=== PATIENT | female | born 1970 | race African-American/Black ===

== ENCOUNTER 2016-09-05 02:25 | Inpatient (IN) | payer OTHER ==
--- NOTE | ~2016-09-05 | A ---
[facility] Nutrition Therapy DATE: 09/05/16 Patient: JENIEFR DEGROOT Physician: ALEXANDRA Address: [address] [place] [address] Room/Bed: [address], Zip: [place] [address] Admit Date: 09/05/16 Date of : [birth year] Height: 5 4 Weight: 212 96.5 NUTRITIONAL ASSESSMENT: REASON: NPO in ICU Dx: 46 y/o female admitted for respiratory failure PMH: CHF, non-ischemic cardio myopathy, DJD Anthropometrics: 5'4", 212# (96 kg), BMI 36 Labs: Cl- 112, Glu 256, Creat 1.5, Ca++ 7.8, Alb 2.8, AST 729, ALT 499 Meds: NaCl, furosemide, dex 5%, pepcid, zofran, levaquin (IV), levophed I/O & Bowel function: none noted. Skin Integrity: wnl Estimated Nutrition Needs: 6118-0417 kcal (13-17 kcals/kg ABW) 81-109 g pro (1.5-2.0 grams/kg IBW) Fluids per MD noting CHF Assessment: Chart reviewed, events noted. Pt was admitted to ICU for respiratory failure and continues to be NPO on the vent. Pt has a h/o CHF. Pt is currently on pressor support. MD ordered Jevity 1.2 to start at 20 mL/hr and increase to goal of 50 mL/hr. Please see recommendations for enteral nutrition, as the pt would benefit from a lower volume formula. RD will remain available. Dx: Inadequate oral intake r/t current clinical condition aeb NPO status, pt on vent. Intervention: 1. NPO 2. Enteral nutrition Monitoring, Evaluation and Goals: 1. Enteral nutrition; once enteral nutrition initiated, tolerate >80% goal volume x 24 hrs 2. GI function; promote regular GI function 3. Improve labs; glucose, creat, AST, ALT, GFR 4. Weight; monitor fluid status Recommendations: WHILE THE PT REMAINS ON PRESSOR SUPPORT: 1. If MAP >60 mmHg, use fiber-free formula and monitor for symptoms of intolerance/ gut [facility] Nutrition Therapy DATE: 09/05/16 Patient: JENIFER DEGROOT Physician: ALEXANDRA Address: [address] [place] [address] Room/Bed: [address], Zip: [place] [address] Admit Date: 09/05/16 Date of : [birth year] Height: 5 4 Weight: 212 96.5 ischemia. Recommend Osmolite 1.5 @ 15 ml/hr and advance 10 ml q 8 hours to goal rate of 40 ml/hr x 24 hours + 30 ml Prostat BID. -This will provide 1640 kcals, 90 g pro, 730 ml H20 -Free H20 flushes per MD 2. If MAP <60 mmHg, do not feed the pt. 3. When the pt is hemodynamically stable off pressors, recommend Jevity 1.5 @ 20 ml/hr and advance 10 ml q 6 hours to goal rate of 40 ml/hr x 24 hours + 30 ml Prostat BID -This will provide 1640 kcal, 91 g pro, and 730 ml H20 -Free H20 flushes per MD 3. Please obtain HbA1c and accuchecks to monitor blood glucose. RD will f/u per protocol as pt is at moderate/severe nutritional risk. Respectfully, ERIN DRISCOLL, manager of international [employer], PURNIM[place], LD [employer] [facility] cc: client file
--- NOTE | ~2016-09-05 | CR72 ---
[facility] A Service of [facility] & [facility] RADIOLOGY TEXT RESULTS PATIENT: JENIFER DEGROOT LOCATION: [place] [id number] : [birth year] UNIT #: [id number] AGE: [address]: Prem Barron MD SEX: F ORDER DR: [id number] [facility] [address] [place], [place] [address] [id number] I MR#: [id number] Acc #: [id number] NAME: JENIFER DEGROOT : 1970 SEX: F STUDY DATE/TIME: 09/06/2016 5:21 UNIT: [facility] ROOM: [facility] STUDY DESCRIPTION: CR Chest Single View Portable Attending Physician: Prem Barron M.D. Ordering Physician: Darwin Ledezma M.D. Primary Care Physician: No Primary Care Physician MEDICAL IMAGING REPORT This report is preliminary unless electronic signature is present EXAM Portable chest. INDICATIONS Followup support lines and tubes. COMPARISON Comparison with yesterday. FINDINGS Interval placement of a NG tube. ET tube and right IJ central venous catheter are stable. Patchy infiltrates within the right lung appear to have worsened. Heart size stable. IMPRESSION Interval worsening of patchy infiltrates within the right lung. The ET tube and right IJ central venous catheter are stable. Dictated by... Ruben Prado M.D. THIS IS AN ELECTRONICALLY VERIFIED REPORT Ruben Prado M.D. at 09/06/2016 6:58 AM ARS/izabel TD: 09/06/2016 06:49 JOB #: [id number] MEDICAL IMAGING REPORT Page 1 of 1 COPY
--- NOTE | ~2016-09-05 | CO ---
Unit #: [id number] #: [id number] Patient: JENIFER DEGROOT [id number] [address] [place], [place] [address] [id number] I MR#: [id number] NAME: JENIFER DEGROOT ROOM: [facility] Age: 46 Sex: F Admission Date: 09/05/2016 : 1970 Attending Physician: Prem Barron M.D. Primary Care Physician: No Primary Care Physician Consultation Date: 09/05/2016 CONSULTATION REPORT REASON FOR CONSULTATION Resuscitated arrest. HISTORY OF PRESENT ILLNESS A 46-year-old female with known nonischemic cardiomyopathy, apparently was found down by police. EMS was called. She was resuscitated in the field. She lost her pulse in the ER, was resuscitated, now is on the ventilator in the intensive care unit. She just arrived here in the ICU. She had been on Levophed, now is actually hypertensive and Levophed is being titrated off. CT scan is reported to show changes consistent with anoxic brain injury. She has significant startle myoclonus. She obviously cannot add to the history. CT scan in the ER revealed infiltrates consistent with pneumonia, obviously suspected aspiration. PAST MEDICAL HISTORY 1. Nonischemic cardiomyopathy with an EF of 26%. 2. Arthritis. ALLERGIES Penicillin apparently causing hives. HOME MEDICATIONS 1. Topamax. 2. Coreg. 3. Lisinopril. FAMILY HISTORY Per EHR: Asthma, coronary artery disease, congestive heart failure. REVIEW OF SYSTEMS Unobtainable. SOCIAL HISTORY Apparently a never smoker, rarely drinks. PHYSICAL EXAMINATION GENERAL: Reveals a female who is orally intubated, 7.5 ET tube with startle myoclonus. She is unresponsive. VITAL SIGNS: She is afebrile. Pulse 96, respiratory rate 34, blood pressure 133/95. Height 5 foot 4 inches, weight 212 pounds. BMI is 36. HEENT: Pupils are equal, round, reactive to light. She has mildly dysconjugate gaze, startle myoclonus. No supraclavicular cervical adenopathy appreciated. CHEST: Equal breath sounds. Exam is somewhat limited by her body Unit #: [id number] #: [id number] Patient: JENIFER DEGROOT habitus. No wheeze or stridor. CARDIAC: Reveals tachycardia which is regular. No definite murmur, rub, or gallop. ABDOMEN: Soft, nontender. Decreased bowel sounds. EXTREMITIES: Reveal no clubbing, cyanosis, or significant edema. NEUROLOGIC: She is unresponsive. SKIN: Warm and dry without rash, diaphoresis. DIAGNOSTIC STUDIES LABORATORY: Initial pH 7.05. Currently arterial blood gas: A pH 7.22, pCO2 of 35, pO2 of 74 all on assist control of 18, tidal volume of 550, 50%, and 5 of PEEP. Her BUN is 23, creatinine 1.5. Venous bicarbonate 17 and improving. Liver function tests are elevated. BNP is not performed. Lactic acid was 6.6, now 1.5. INR is 1.1. Initial cardiac enzymes negative. White blood cell count is 17, hemoglobin 11.2, platelet count 232,000. Tox screen negative. Urinalysis: One plus leukocyte esterase, 2+ protein, 3+ blood. Blood cultures performed and are pending. No sputum has been collected. Urine is pending. IMAGING: Chest x-ray: ET tube in adequate position now. CT scan: Bilateral pulmonary infiltrates. No definite PE. ET was in right mainstem but has been removed. CARDIOVASCULAR: EKG: Significant ST-T wave changes laterally. Cardiology seeing. IMPRESSION 1. Resuscitated arrest, likely secondary to cardiac arrhythmia. 2. Anoxic brain injury. 3. Pulmonary edema. 4. Cardiomyopathy. 5. Respiratory failure, currently ventilator dependent. 6. Metabolic acidosis. 7. Shock, improving now with elevated blood pressure. 8. Hematuria. 9. Acute kidney injury. 10. Obesity, consider obstructive sleep apnea. PLAN Mechanical ventilatory support. Will start tube feeds. Antibiotics for now for pneumonia, adjust as cultures return. Diuresis, monitoring kidney function and blood pressure closely. I have discussed with family severity of disease. Overall, prognosis appears poor and I suspect she has very significant anoxic brain injury which she likely will not recover from. Thank you very much for allowing me to participate in the care of Ms. Degroot. Dictated by... Darwin Ledezma M.D. [facility]/ Unit #: [id number] #: [id number] Patient: JENIFER DEGROOT TD: 09/05/2016 11:42 JOB #: [id number] CONSULTATION REPORT Page 1 of 1 X Darwin Ledezma MD CONSULTATION REPORT
--- NOTE | ~2016-09-05 | CO ---
Unit #: [id number] #: [id number] Patient: JENIFER DEGROOT [id number] [address] [place], [place] [address] [id number] I MR#: [id number] NAME: JENIFER DEGROOT ROOM: [facility] Age: 46 Sex: F Admission Date: 09/05/2016 : 1970 Attending Physician: Prem Barron M.D. Consultation Date: 09/05/2016 CONSULTATION REPORT REASON FOR CONSULTATION Non-ischemic cardiomyopathy. HISTORY OF PRESENT ILLNESS This is a 46-year-old female, patient of Dr. Wolf with a prior history of non-ischemic cardiomyopathy with EF 26% per echo on 07/17/2016. She also has a prior history of chronic systolic congestive heart failure, negative Cardiolite exercise stress test in 01/2015, asthma, and rheumatoid arthritis. She is currently intubated and unresponsive on ventilator and unable to answer questions. History was obtained from record review and family at bedside. The patient was found down by police liaison. She was resuscitated per EMS and she did experience retrosternal pulse. In the ER, she had symptomatic severe bradycardia, requiring epinephrine and Levophed. She was stabilized and transferred to the ICU, intubated and unresponsive. She is currently breathing over the vent and has started on myoclonus. CT of the chest showed bilateral infiltrates suspicious for pneumonia. Chest x-ray showed cardiomegaly and sustained atelectasis for edema with possible left pleural effusion. PAST MEDICAL HISTORY 1. Non-ischemic cardiomyopathy with EF 26%. 2. Echo on 07/17/2016 showed EF 26%, mild MR, mild TR, left ventricular hypertrophy. 3. Chronic systolic congestive heart failure. 4. Negative Cardiolite exercise stress test in 01/2015 with EF 31%. 5. Rheumatoid arthritis. 6. Asthma. PAST SURGICAL HISTORY 1. Hysterectomy. 2. . SOCIAL HISTORY The patient lives with her . Denies alcohol use. Life-time non-smoker. Denies illicit drug use. She has been seen a weight loss doctor and taking medication for weight loss according to her family. They are unaware what the medication is, but states she received cardiac clearance for it. FAMILY HISTORY Unit #: [id number] #: [id number] Patient: JENIFER DEGROOT Mother had coronary artery disease and her father had CHF in his 60s. ALLERGIES Penicillin. HOME MEDICATIONS 1. ProAir MDI every 6 hours as needed for shortness of breath and wheezing. 2. Coreg 6.25 twice daily. 3. Lasix 20 mg p.o. daily. 4. Potassium chloride 20 mEq p.o. daily. 5. Aldactone 25 mg p.o. daily. 6. Lisinopril 5 mg p.o. daily. 7. Topamax 25 mg p.o. daily. REVIEW OF SYSTEMS The patient is unresponsive and intubated, unable to obtain. PHYSICAL EXAMINATION VITAL SIGNS: Temperature 98.4, heart rate 96, respirations 27, blood pressure 133/95. Height 64 inches and weight 96.5 kg. GENERAL: This is a 46-year-old female, intubated and unresponsive with start on myoclonus. HEENT: Head is atraumatic and normocephalic. Pupils are equal and round. Mucous membranes are moist. NECK: Supple. Trachea is midline. Negative for JVD. LUNGS: Clear and diminished at bases anteriorly. Rapid respirations. CARDIOVASCULAR: S1 and S2. Regular rate and rhythm. No murmur, rub, or gallop auscultated. ABDOMEN: Soft, nontender, and nondistended. EXTREMITIES: Pulses are palpable. No pedal edema. No cyanosis. NEUROLOGIC: She is unresponsive with started on myoclonus. DIAGNOSTIC STUDIES LABORATORY RESULTS: Sodium 137, potassium 4.4, chloride 112, BUN 23, creatinine 1.5, glucose 356. Hemoglobin 11.2, hematocrit 36.3, platelets 232, and white blood cell count 17. AST 729, ALT 499, and alkaline phos 95. Lipase 31. Lactic acid initially 6.6 now 1.5. Point of care troponin less than 0.05. D-dimer greater than 10,000. PT 11.9, INR 1.1, PTT 28.9. IMAGING STUDIES: CT of the head is concerning for whole brain ischemia with loss of mccoy-white interface, and swelling on the brain and effacement of sulci as well as compression of fourth ventricle and lateral ventricles concerning for anoxic brain injury. CT of the chest was negative for pulmonary embolus showed dense bilateral infiltrates right greater than left. Chest x-ray shows mild cardiomegaly and slightly increased right lung base opacities. Aspiration pneumonia not entirely excluded. Hazy attenuation of her left lower chest however flex either breast, and cardiac status are small left pleural effusion. CARDIOVASCULAR STUDIES: EKG showed sinus tachycardia with a ventricular rate of 110 and nonspecific T-wave abnormalities. ASSESSMENT 1. Resuscitated arrest. 2. Anoxic brain injury. Unit #: [id number] #: [id number] Patient: JENIFER DEGROOT 3. Acute respiratory failure, currently on ventilator. 4. Non-ischemic cardiomyopathy with EF 26%. 5. Sepsis. 6. Hypotension on pressors. 7. Acute kidney injury. PLAN 1. Trend cardiac enzymes. 2. Check BNP. 3. CBC and BMP in a.m. 4. EKG. 5. Echocardiogram. 6. Consider anticoagulation. We will discuss with . Thank you for asking us to see this patient. We appreciate the consult. Dictated by... Judy Vasquez APRN for Codey Ghotra M.D. SUZIE/candelaria TD: 09/06/2016 14:15 JOB #: [id number] CONSULTATION REPORT Page 1 of 1 X X CONSULTATION REPORT
--- NOTE | ~2016-09-05 | CR72 ---
[facility] A Service of [facility] & [facility] RADIOLOGY TEXT RESULTS PATIENT: JENIFER DEGROOT LOCATION: [facility]IC[facility]3-18 : [birth year] UNIT #: [id number] AGE: [address]: Prem Barron MD SEX: F ORDER DR: [id number] [facility] [address] [place], [place] [address] [id number] I MR#: [id number] Acc #: [id number] NAME: JENIFER DEGROOT : 1970 SEX: F STUDY DATE/TIME: 09/05/2016 6:14 UNIT: [facility] ROOM: [id number] STUDY DESCRIPTION: CR Chest Single View Portable Attending Physician: Stephanie Nicole M.D. Ordering Physician: Stephanie Nicole M.D. Primary Care Physician: Primary Care Physician No MEDICAL IMAGING REPORT This report is preliminary unless electronic signature is present EXAM Portable AP view of the chest COMPARISON September 05, 2016 02:49 a.m. and February 15, 2015. INDICATION 46-year-old female found down 1 day ago. Respiratory failure and cardiac arrest. Endotracheal tube placement. Endotracheal tube retraction since comparison exam with placement of a central venous catheter since comparison exam. FINDINGS/IMPRESSION Endotracheal tube has been retracted with the tip now located approximately 4.9 cm above the silverio. There is new right internal jugular catheter with the tip deep in the right atrium, consider retraction by at least approximately 4.5 cm. There appears to be mild cardiomegaly which may be accentuated by apical lordotic positioning, low lung volumes and portable technique. No convincing evidence of pneumothorax. There may be slightly increased opacities in the right lung base with slightly improved left upper lobe opacities perhaps reflecting shifting atelectasis or edema. Pneumonia not entirely excluded. There is hazy attenuation over the left lower chest, grossly stable which may reflect breast and cardiac shadows but a small left pleural effusion cannot be excluded. Dictated by... Maurice Queen M.D. THIS IS AN ELECTRONICALLY VERIFIED REPORT Maurice Queen M.D. at 09/11/2016 7:15 AM [facility] A Service of [facility] & [facility] RADIOLOGY TEXT RESULTS PATIENT: JENIFER DEGROOT LOCATION: [facility] CICCU3-18 : [birth year] UNIT #: [id number] AGE: [address]: Prem Barron MD SEX: F ORDER DR: JOYCE/samuel TD: 09/05/2016 07:08 JOB #: [id number] MEDICAL IMAGING REPORT Page 1 of 1 COPY
--- NOTE | ~2016-09-05 | CO ---
Unit #: [id number] #: [id number] Patient: JENIFER DAVIS [id number] [address] [place], [place] [address] [id number] Connor MR#: [id number] NAME: JENIFER DAVIS ROOM: [facility] Age: 46 Sex: F Admission Date: 09/05/2016 : 1970 Attending Physician: Prem Barron M.D. Consultation Date: 09/05/2016 CONSULTATION REPORT REASON FOR CONSULTATION Renal failure. Thank you very much for asking me to see this patient in consultation. HISTORY OF PRESENT ILLNESS Ms. Jenifer Davis is a 46-year-old female with a history of nonischemic cardiomyopathy with EF around 26%, history of degenerative disk disease, who apparently was found down. Unsure if it was a family member or a police chief deputy, but found down. She lives with her daughter. Pulseless resuscitation, subsequently again in the emergency room had several episodes of pulseless resuscitation again. Subsequently, intubated on the unit. She was initially placed on Levophed and phenylephrine, but now all pressors are off. She is unresponsive on the vent. I was asked to see the patient secondary to decreasing urine output and increased creatinine, upon admission was noted 1.4 and up to 1.5. She has multiple family members around. She has also seen today by Neurology for possible anoxic brain injury. Her family really cannot tell me much history. They do not know if she has ingested anything or not. PAST MEDICAL HISTORY History of nonischemic cardiomyopathy with EF of 26%, history of degenerative disk disease, history of possible obstructive sleep apnea, history of obesity, status post hysterectomy. ALLERGIES Include penicillin. SOCIAL HISTORY She does not smoke. Only occasional alcohol. Again, lives with her daughter. MEDICATIONS At home include Aldactone, lisinopril, Coreg, Topamax, Lasix, and KCl. REVIEW OF SYSTEMS Really unable to obtain at this moment in time. The family could not tell me how she has been feeling prior to this. FAMILY HISTORY Noncontributory. PHYSICAL EXAMINATION GENERAL: Again, unresponsive on the vent. Unit #: [id number] #: [id number] Patient: JENIFER DAVIS VITAL SIGNS: Temperature is 98.4, pulse is 94 to 110, blood pressure is 96 to 185 over 55 to 101. HEENT: Her pupils are very sluggish at best. She is orally intubated. There are no obvious trauma. NECK: Supple. No adenopathy. CARDIAC: She is tachycardic without a rub. No S3 or S4. LUNGS: Have bilateral rhonchi throughout. ABDOMEN: Bowel sounds positive. Decreased nontender. EXTREMITIES: She has cool extremities; however, pulses are intact, but decreased. No skin rashes are noted. : Sosa catheter is in place. DIAGNOSTIC STUDIES IMAGING STUDIES: She had a negative initial chest x-ray. She had a CT of her head that shows consistent with possible diffuse ischemia. She had a CT angiogram with IV contrast, that was negative for PE, but did show bilateral infiltrates right greater than left. LABORATORY RESULTS: Her ABG last checked showed a pH of 7.223, pCO2 of 34, PO2 of 74 on 50%. Sodium is 137, potassium 4.4, chloride is 112, bicarb 17, BUN 23, creatinine 1.5, glucose 256. Her anion gap is 8. On admission, showed a bicarb of 14, and anion gap of 11. Calcium 7.8, albumin is 2.8. Liver function tests are elevated. CPK is 405. Troponin is 2.43. BNP is 160. Lactic acid was 6.6, initially down to 1.5. Her hemoglobin is 11.2, white count 17,000, platelets 232,000 with 21 bands. Her UA shows specific gravity of 1.022, 2+ protein, 25 to 50 rbc's, 2 to 5 wbc's, 1+ bacteria. Blood and urine cultures are pending. ASSESSMENT AND PLAN 1. Acute kidney injury. I assume this lady has acute renal failure. I do not have any previous creatinine prior to this presentation. Certainly, it is combination of acute tubular necrosis from ischemic injury as well as possible noncontrast induced nephropathy from her CT angiogram all contributing to acute renal failure. Certainly at this time, she does not want to be placed on hemodialysis or CRRT that is currently over the next 12 to 48 hours if she may progress this way. I did have a long discussion with the family and let her know about her prognosis. We will continue IV fluids. We will decrease the rate to 75 mL an hour and change to D5W with 3 amps of bicarb. She is on Lasix as well currently. We will keep her going, because I think she is not volume depleted mainly. I think that her renal failure is again related to acute tubular necrosis and contrast. We will check labs in the morning. We will check a renal ultrasound. 2. Acidosis. The patient with metabolic acidosis with a normal anion gap with a fairly well compensation. Again, we will change bicarb drip to 3 amps per L. Again, I doubt if she is with a normal anion gap, we need to proceed other ingestions at this time and again nothing was found, and no history of any ingestions the best family can tell. 3. Possible sepsis from either urinary tract infection, pneumonia, versus other. She has an increased white count and bandemia. She is placed on clindamycin and Levaquin. We will await culture results. 4. History of nonischemic cardiomyopathy. The patient with some increased troponin, but certainly probably related to her code earlier today. We will continue to follow. Dictated by.Trey Ansari M.D. Unit #: [id number] #: [id number] Patient: JENIFER DAVIS WAD/modl TD: 09/06/2016 14:54 JOB #: [id number] CONSULTATION REPORT Page 1 of 1 X Den Ansari MD CONSULTATION REPORT
--- NOTE | ~2016-09-05 | CR72 ---
[facility] A Service of [facility] & [facility] RADIOLOGY TEXT RESULTS PATIENT: JENIFER DEGROOT LOCATION: [facility] : [birth year] UNIT #: [id number] AGE: [address]: Prem Barron MD SEX: F ORDER DR: [id number] [facility] [address] [place], [place] [address] [id number] MR#: [id number] Acc #: [id number] NAME: JENIFER DEGROOT : 1970 SEX: F STUDY DATE/TIME: 09/05/2016 2:49 UNIT: [facility] ROOM: STUDY DESCRIPTION: CR Chest Single View Portable Attending Physician: Cong Vizcaino Ordering Physician: George Vizcaino M.D. Primary Care Physician: Anirudh Ding M.D. MEDICAL IMAGING REPORT This report is preliminary unless electronic signature is present EXAM Portable chest INDICATION Endotracheal tube placement. FINDINGS This portable view of the chest is compared with 02/15/2015. There is an endotracheal tube present with its tip at the silverio. It should be pulled back about 2 to 3 cm. There are low lung volumes and there may be a left upper lobe infiltrate. IMPRESSION 1. Endotracheal tube tip is near the silverio and should be pulled back about 2 to 3 cm. 2. Low lung volumes with possible left upper lobe infiltrate. Dictated by... Gary Rust M.D. THIS IS AN ELECTRONICALLY VERIFIED REPORT Gary Rust M.D. at 09/05/2016 1:39 PM TAISHA/pily TD: 09/05/2016 04:04 JOB #: [id number] MEDICAL IMAGING REPORT Page 1 of 1 COPY
--- NOTE | ~2016-09-05 | CR7 ---
[facility] A Service of [facility] & [facility] RADIOLOGY TEXT RESULTS PATIENT: JENIFER DEGROOT LOCATION: [address] : [birth year] UNIT #: [id number] AGE: [address]: Prem Barron MD SEX: F ORDER DR: [id number] [facility] [address] [facility]. [place], [place] [address] [id number] I MR#: [id number] #: [id number] NAME: JENIFER DEGROOT : 1970 SEX: F STUDY DATE/TIME: 09/05/2016 11:25 UNIT: [facility] ROOM: [facility] STUDY DESCRIPTION: CR Abdomen Single AP View Attending Physician: Prem Barron M.D. Ordering Physician: Darwin Ledezma M.D. Primary Care Physician: No Primary Care Physician MEDICAL IMAGING REPORT This report is preliminary unless electronic signature is present EXAM Abdomen portable 09/05/2016 at 11:25 hours HISTORY A 46-year-old with history of cardiac arrest, Dobbhoff tube placement today. COMPARISON None. FINDINGS Single supine view of the abdomen demonstrates a Dobbhoff tube looped in the proximal stomach with tip directed rightward in the fundus of the stomach. Bowel gas pattern unremarkable. IMPRESSION The Dobbhoff tube tip loops in the fundus of the stomach with tip directed rightward. Dictated by... Chio Bangura M.D. THIS IS AN ELECTRONICALLY VERIFIED REPORT Chio Bangura M.D. at 09/05/2016 12:50 PM Nadine TD: 09/05/2016 12:20 JOB #: [id number] MEDICAL IMAGING REPORT Page 1 of 1 COPY
--- NOTE | ~2016-09-05 | EKG ---
PATIENT: JENIFER DEGROOT UNIT #: [id number] Ventricular Rate: 109 BPM Atrial Rate: 109 BPM P-R Interval: 188 ms QRS Duration: 96 ms Q-T Interval: 352 ms QTC Calculation(Bezet): 474 ms P Winfield: 66 degrees Calculated R Winf[place]: -16 degrees Calculated T Winf[place]: 56 degrees Diagnosis Line: Sinus tachycardia Diagnosis Line: Possible Left atrial enlargement Diagnosis Line: Nonspecific ST abnormality Diagnosis Line: Abnormal ECG Diagnosis Line: When compared with ECG of 05-SEP-2016 02:41, Diagnosis Line: Incomplete right bundle branch block is no longer Diagnosis Line: Present Diagnosis Line: Confirmed by NELY RALPH MD ([id number]) on Diagnosis Line: 09/07/2016 3:40:35 PM INTERPRETING MD: MECHE
--- NOTE | ~2016-09-05 | CO ---
Unit #: [id number] #: [id number] Patient: JENIFER DEGROOT [id number] [facility] [address] [facility]. [place], [place] [address] [id number] I MR#: [id number] NAME: JENIFER DEGROOT ROOM: [facility] Age: 46 Sex: F Admission Date: 09/05/2016 : 1970 Attending Physician: Prem Barron M.D. Primary Care Physician: No Primary Care Physician Consultation Date: 09/05/2016 CONSULTATION REPORT REFERRING PHYSICIAN Stephanie Nicole M.D. 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 PATIENT IDENTIFICATION This is a 46-year-old -Citizen Of [place] female, who was evaluated in room ICU, bed 18 at [facility]. SOURCE OF INFORMATION The medical record and my discussion with the patient's daughter. PROBLEM LIST 1. The patient was a resuscitated arrest. 2. Nonischemic cardiomyopathy with low ejection fraction. 3. Degenerative disk disease. 4. Hysterectomy. 5. . HISTORY OF PRESENT ILLNESS This is a 46-year-old female who was actually brought in via EMS and it looks like she went outside to walk or something and apparently there was a police patrol type situation and they were rounding and they saw her. When they came back, she was on the ground and she was shaking. EMS was called then and the patient had apparently lost her pulse. She was resuscitated in the field and intubated and brought in the emergency room where she transiently became pulseless again. She had extreme bradycardia. She had to be treated several times with different medication. Her blood pressure was low. She was treated per ACLS protocol. She was intubated, and she has not really woken up and what we are seeing right now is significant jerking type activity which is the classic hypoxic and anoxic myoclonus. The patient has a known history of ischemic cardiomyopathy and concern was raised with the family that she may have a cardiac event. Her ABGs were abnormal when she came in. Her pH was 7.05. Her creatinine has gone up to 1.5. Her AST is 729, ALT 499, alkaline phosphatase is up to 95. Troponin was 1.42. Her white count was 17, H and H was 11.2 and 36.3, platelet count 232,000. Urine drug screen was negative. Urinalysis showed some protein and blood, 2-5 WBCs and bacteria positive. I do not have imaging study results of the head. She is otherwise nonresponsive but it does look like she has a gag and she is overbreathing the vent. Unit #: [id number] #: [id number] Patient: JENIFER DEGROOT She is having what clinically looks like anoxic myoclonus. No history of seizures. Nothing suggesting seizure right now. I did get the CT report and I looked at it and it shows loss of mccoy-white and effacement of the sulci with significant brain edema which is typically seen with hypoxic and anoxic events. PAST MEDICAL HISTORY As discussed above. PAST SURGICAL HISTORY Nothing major. ALLERGIES Penicillin causing hives. HOME MEDICATIONS 1. Topamax. 2. Coreg. 3. Lisinopril. FAMILY HISTORY As per records: Asthma, coronary artery disease, congestive heart failure. SOCIAL HISTORY The patient lives at home. Apparently never smoked, rarely drinks. No drug use known to us. REVIEW OF SYSTEMS Could not be obtained because of her present anoxic state. PHYSICAL EXAMINATION VITAL SIGNS: Temperature 98.4, pulse 96, respirations 34, blood pressure 133/95, O2 saturations were up to 100%. Weight 212 pounds. BMI was 36. NEUROLOGIC: The patient essentially is in a coma. I really did not see any posturing or any other activities. She had spontaneous movements, so I will have to give her a [place] Coma Scale of probably 3T. She is obviously not following commands. She does have what looks like cough and she is overbreathing the vent. CRANIAL NERVES: Pupils: I really did not see any reactivity, almost pinpoint. No corneals. No doll's eyes. No disconjugate eye movements. No ptosis. No nystagmus but she has this myoclonus activity and the eyes keep on opening and closing. I did not see any facial asymmetry. Hearing was questionable. Tongue was midline. I could not visualize the oropharynx or uvula. Head turning was otherwise not seen. MOTOR: Except for the myoclonus, I did not seen any activity. SENSORY: Except for the myoclonus, I did not see any reactivity. REFLEXES: I could not get any reflexes. Toes are moot. GAIT/COORDINATION: Could not be evaluated. DIAGNOSTIC STUDIES Labs and imaging studies reviewed personally. 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 By the way, I am seeing and today is the first day. I talked to the family. So far, there is nothing primary neurologic that is known to us. There is nothing suggesting seizure or central nervous system Unit #: [id number] #: [id number] Patient: JENIFER DEGROOT infection or major infarct. This is probably global hypoxia. I will try some Ativan to calm the myoclonic type activity as other medications really do not do anything for her prognosis. I am looking at the brain and the swelling and the myoclonic activity and within a few hours, she is nonreactive so she may progress to brain . Another option is that she wakes up without any deficits which I really, really doubt and many people if they make it, they have significant brain damage and cognitive changes but I am concerned because of her age and the cardiac issues and the edema that this will be a poor prognostic picture but we will do whatever needs to be done and could be done. I explained that to the family. I will follow her. Call me for any other questions, issues, or concerns. I will follow her along with you. If there are any other issues, call me any time. Dictated by... Blanca Blanchard TD: 09/05/2016 16:31 JOB #: [id number] CONSULTATION REPORT Page 1 of 1 X Eva Palmer MD X CONSULTATION REPORT
--- NOTE | ~2016-09-05 | US77 ---
[facility] A Service of [facility] RADIOLOGY TEXT RESULTS PATIENT: JENIFER DEGROOT [facility] [birth year] UNIT #: [id number] AGE: [address]: Prem Barron MD SEX: F ORDER DR: [id number] [facility] [address] [facility] [place] [facility]. [place], [place] [address] [id number] I MR#: [id number] Acc #: [id number] NAME: JENIFER DEGROOT : 1970 SEX: F STUDY DATE/TIME: 09/05/2016 20:43 UNIT: [facility] ROOM: [facility] STUDY DESCRIPTION: US Kidney Bilateral Complete Attending Physician: Prem Barron M.D. Ordering Physician: Azeem Ansari M.D. Primary Care Physician: No Primary Care Physician MEDICAL IMAGING REPORT This report is preliminary unless electronic signature is present EXAM Renal ultrasound. INDICATION Acute renal failure. Difficulty urinating. COMPARISON None available. FINDINGS The right kidney measures 12.3 cm. The left kidney measures 11.5 cm. There is increased echogenicity of the renal cortex suggesting chronic medical renal disease. This is not definitive. Renal cortical thickness is normal. No hydronephrosis. The bladder is decompressed due to a Sosa catheter. IMPRESSION Slightly increased echogenicity of renal cortex suggests a component of chronic medical renal disease. No hydronephrosis. Dictated by... Darryl Shepherd M.D. THIS IS AN ELECTRONICALLY VERIFIED REPORT Darryl Shepherd M.D. at 09/06/2016 1:20 PM CATHERINE/lucila TD: 09/05/2016 22:12 JOB #: [id number] MEDICAL IMAGING REPORT [facility] A Service [facility] RADIOLOGY TEXT RESULTS PATIENT: JENIFER DEGROOT LOCATION: [facility] : [birth year] UNIT #: [id number] AGE: [address]: Prem Barron MD SEX: F ORDER DR: Page 1 of 1 COPY
--- NOTE | ~2016-09-05 | CT16 ---
[facility] A Service of [facility] & [facility] RADIOLOGY TEXT RESULTS PATIENT: JENIFER DEGROOT [facility] [birth year] UNIT #: [id number] AGE: [address]: Prem Barron MD SEX: F ORDER DR: [id number] [facility] [address] [facility]. [place], [place] [address] [id number] E MR#: [id number] Acc #: [id number] NAME: JENIFER DEGROOT : 1970 SEX: F STUDY DATE/TIME: 09/05/2016 4:08 UNIT: [facility] ROOM: STUDY DESCRIPTION: CT Angio Chest for PE Attending Physician: George Vizcaino M.D. Ordering Physician: George Vizcaino M.D. Primary Care Physician: Primary Care Physician No MEDICAL IMAGING REPORT This report is preliminary unless electronic signature is present EXAM CT scan of the chest with pulmonary embolus protocol INDICATION Patient found unresponsive at home and was resuscitated. Evaluate for pulmonary embolus. TECHNIQUE The patient was given 80 mL of Isovue 370 and spiral imaging was performed through the chest. 3-D reconstructions of the pulmonary arteries were generated. This CT examination was performed with one or more of the following radiation dose reduction techniques: automatic exposure control, adjustment of mA and/or kV according to patient size, and iterative reconstruction. FINDINGS The study is slightly degraded by motion. There is no pulmonary embolus visible. The patient has an endotracheal tube present which is just below the silverio with its tip in the right mainstem bronchus. There are dense bilateral upper lobe infiltrates, right side greater than left, and there are lower lobe superior segment infiltrates, right side greater than left. The visualized portions of the upper abdomen are normal. IMPRESSION 1. The endotracheal tube is just down the right mainstem bronchus and it should be pulled back about 3 cm. 2. There are dense bilateral infiltrates, right side greater than left. These infiltrates are located in the right upper lobes posteriorly and also in the right lower lobe superior segments. 3. There is no pulmonary embolus visible. [facility] A Service of [facility] & [facility] RADIOLOGY TEXT RESULTS PATIENT: JENIFER DEGROOT [facility] : [birth year] UNIT #: [id number] AGE: [address]: Prem Barron MD SEX: F ORDER DR: Dictated by... Gary Rust M.D. THIS IS AN ELECTRONICALLY VERIFIED REPORT Gary Rust M.D. at 09/05/2016 1:39 PM TAISHA/samuel TD: 09/05/2016 06:00 JOB #: [id number] MEDICAL IMAGING REPORT Page 1 of 1 COPY
--- NOTE | ~2016-09-05 | DS ---
Unit #: [id number] #: [id number] Patient: JENIFER DEGROOT [id number] [address] [address] [id number] I MR#: [id number] NAME: JENIFER DEGROOT ROOM: [facility] Age: 46 Sex: F Admission Date: 09/05/2016 : 1970 Discharge Date: 09/07/2016 Attending Physician: Prem Barron M.D. Primary Care Physician: No Primary Care Physician DISCHARGE SUMMARY DISCHARGE/ SUMMARY REASON FOR ADMISSION Resuscitated arrest. HISTORY OF PRESENT ILLNESS/HOSPITAL COURSE The patient is a 46-year-old female with a prior history of nonischemic cardiomyopathy, decreased ejection fraction I believe close to 15% to 20%, who was admitted following resuscitating arrest. Please see H and P for complete details of initial part of hospital course. Initial head CT performed was suspicious for anoxic encephalopathy and patient had no neurological response, no reflexes when she presented to the ER for initial evaluation. She was subsequently placed on ventilator and consultation was placed to Dr. Ledezma and associates as the clinical nurse reviewer. We also placed consultation to cardiology secondary to a prior history of systolic heart failure. Through this hospital course, the patient did have elevated troponins and did undergo a 2D echocardiogram showing ejection fraction of 15% to 20%. We also placed consultation after patient's creatinine slowly started to increase. Indication of renal failure and, therefore, Dr. Ansari saw and evaluated the patient. Routine medications were initiated. Through the patient's time and while being admitted here in the ICU, she had no neurological function. She was no sedation. Plans were reviewed with patient and family in detail. Neurology services were also asked to see the patient as well, per family request, to ascertain brain status and/or brain function. The patient underwent brain perfusion scan on 09/06/2016 at 2 p.m. in the afternoon which did not show any intracerebral blood flow indicative of brain /anoxic brain injury. These results were subsequently communicated with patient's family and, ultimately, patient underwent terminal extubation and on 09/06/2016 at 2002 hours. FINAL DISCHARGE DIAGNOSES/REASON FOR Unit #: [id number] #: [id number] Patient: JENIFER DEGROOT 1. Anoxic encephalopathy. 2. Acute respiratory failure. 3. Resuscitated arrest. 4. Ischemic cardiomyopathy with ejection fraction of 15% to 20%. 5. Elevated troponins. 6. Acute renal failure. Dictated by... Blanca Short/curt TD: 09/10/2016 08:46 JOB #: [id number] DISCHARGE SUMMARY Page 1 of 1 X Prem Barron MD X DISCHARGE SUMMARY
--- NOTE | ~2016-09-05 | NM10 ---
[facility] A Service of [facility] RADIOLOGY TEXT RESULTS PATIENT: JENIFER DEGROOT LOCATION: [place] [address]-18 : [birth year] UNIT #: [id number] AGE: [address]: Prem Barron MD SEX: F ORDER DR: [id number] [place] [id number] [facility]. [place], [place] [address] [id number] I MR#: [id number] Acc #: [id number] NAME: JENIFER DEGROOT : 1970 SEX: F STUDY DATE/TIME: 09/06/2016 14:01 UNIT: [facility] ROOM: [facility] STUDY DESCRIPTION: NM Brain Image W Vasc Flow Attending Physician: Prem Barron M.D. Ordering Physician: Eva Palmer M.D. Primary Care Physician: No Primary Care Physician MEDICAL IMAGING REPORT This report is preliminary unless electronic signature is present EXAM Brain study on patient. INDICATIONS Patient collapsed on the morning of September 05, 2016. She had a resuscitated arrest and subsequently had a CT of the head that showed loss of mccoy-white matter differentiation, characteristic of anoxic brain injury. Patient was administered 27.4 mCi of technetium-99m DTPA and multiple sequential images were obtained over the head. FINDINGS Patient does have radiotracer uptake seen within the right internal jugular vein central venous line, which was the site of injection; however, no uptake within the patient's brain is seen. IMPRESSION No intracerebral blood flow identified. Findings discussed with Dr. Palmer at the time of this dictation. Dictated by... Rosaura Ellis M.D. THIS IS AN ELECTRONICALLY VERIFIED REPORT Rosauar Ellis M.D. at 09/06/2016 4:42 PM AFF/js TD: 09/06/2016 16:30 JOB #: [id number] MEDICAL IMAGING REPORT [facility] A Service [facility] RADIOLOGY TEXT RESULTS PATIENT: JENIFER DEGROOT LOCATION: [address] : [birth year] UNIT #: [id number] AGE: [address]: Prem Barron MD SEX: F ORDER DR: Page 1 of 1 COPY
--- NOTE | ~2016-09-05 | HP ---
Unit #: [id number] #: [id number] Patient: JENIFER DEGROOT [id number] [address] [place], [place] [address] [id number] I MR#: [id number] NAME: JENIFER DEGROOT ROOM: 265[address] Age: 46 Sex: F Admission Date: 09/05/2016 : 1970 Attending Physician: Stephanie Nicole M.D. Primary Care Physician: No Primary Care Physician HISTORY AND PHYSICAL CHIEF COMPLAINT Resuscitated arrest. HISTORY This 46-year-old female with nonischemic cardiomyopathy, DJD, is admitted followed a resuscitated arrest. Complete details are somewhat unknown. Apparently the patient was witnessed to have some shaking episodes and distress in front of possibly her home by bystanders who could have been police. EMS was called, and patient lost her pulse. She was resuscitated in the field, and brought into this emergency department initially with a pulse. However, she transiently lost her pulse in the ER or became extremely bradycardic three times requiring multiple doses of epinephrine. Also received 3 amps of bicarb. Was started on Levophed with improvement of her blood pressure and stabilization of her heart rate. Currently on examination she has startle myoclonus. Head CT is suspicious for anoxic encephalopathy. Labs are notable for metabolic acidosis. EKG shows ST wave abnormalities laterally. CTA of the chest was performed, which was negative for PE, but does show bilateral infiltrates consistent with pneumonia. In the ER the patient was also bolused with IV fluids, given Levaquin as she is penicillin allergic. Apparently before this episode she was in her usual status of health according to a family member who now was in the emergency department. PAST MEDICAL HISTORY 1. Nonischemic cardiomyopathy with echo revealing an ejection fraction of about 26% but without significant valvular heart disease. Echo 06/2016 at [facility] ejection fraction 26%. Left ventricle chamber is moderately enlarged, mild LVH. Previous exercise treadmill at this facility 2014 was negative for ischemia. 2. DJD. 3. Hysterectomy. 4. . ALLERGIES Penicillin resulting in hives. HOME MEDICATIONS Topamax 200 mg b.i.d.; Coreg 6.25 mg b.i.d.; lisinopril 10 mg daily. FAMILY HISTORY Asthma, CAD, congestive heart failure. Unit #: [id number] #: [id number] Patient: JENIFER DEGROOT SOCIAL HISTORY The patient according to old records is a lifelong nonsmoker and seldom drinks alcohol. REVIEW OF SYSTEMS Impossible to obtain as patient is unresponsive on a ventilator. PHYSICAL EXAMINATION GENERAL: 46-year-old female who currently is unresponsive on a ventilator, she does have startle myoclonus. VITAL SIGNS: Temperature uncertain, pulse 99, respirations 25. Current blood pressure 111/91, O2 saturation 97%. FIO2 of 50%. HEENT: Pupils are about 5 mm and do not really react. Negative corneals. Negative doll's. Pharynx - patient is orally intubated. NECK: Supple without adenopathy or thyromegaly. CHEST: Rhonchi noted bilaterally. CARDIAC: Normal S1 and S2 without definite murmur. ABDOMEN: Bowel sounds are hypoactive, nontender. No hepatosplenomegaly or masses. EXTREMITIES: Without clubbing, cyanosis or edema. Pedal pulses are diminished. NEUROLOGIC: Patient has startle myoclonus on exam, is breathing above the ventilator. Pupils are about 5 mm but negative. Corneal reflexes at this time are doll's. DIAGNOSTIC STUDIES ADMISSION LABS: Hematocrit is 36.3, white blood count is 17, normal platelet count, 21 bands. SMA 12 - glucose 288, chloride 114, CO2 14, calcium 8.2, lipase normal, lactic acid 6.6. D-dimer greater than 10,000. Cardiac markers are negative. ABG - pH 7.06, pCO2 44.8, pO2 355, O2 saturation 99.6% on AC 18, FIO2 100%, tidal volume 550, PEEP of 5. Urinalysis - positive leukocyte esterase, protein, blood with 25-50 red cells, 2-5 white cells, 1+ bacteria. IMAGING STUDIES: Head CT worrisome for global anoxic ischemia. Chest x-ray - low lung volumes. CT of the chest is negative for PE. Does show dense bilateral infiltrates with ET tube in the right main stem bronchus. ET tube has since been pulled back. CARDIOLOGY STUDIES: EKG shows sinus tachycardiac, rate 110 with T wave inversions noted 1, AVL, and V5 through V6. ASSESSMENT 1. Resuscitated arrest. Possibly this was a primary cardiac event, as patient does have a nonischemic cardiomyopathy. She does have infiltrates bilaterally on chest x-ray, which was suspicious for pneumonia. 2. Anoxic encephalopathy. 3. Pneumonia which could be community acquired versus aspiration. 4. Nonischemic cardiomyopathy, ejection fraction 26%. 5. DJD. PLANS 1. IV fluids with bicarb. 2. Serial cardiac enzymes. Unit #: [id number] #: [id number] Patient: JENIFER DEGROOT 3. Repeat labs. 4. Now will check LFTs as well and repeat ABG along with lactic acid level. 5. Levaquin and clindamycin. 6. Check urine tox screen. 7. Gastritis prophylaxis. 8. SCDs pending obtaining PT and PTT. 9. Aspirin. 10. Continue Levophed. 11. Pulmonary, cardiology, neurology consultation. 12. Prognosis at this time is very guarded. Critical care time spent evaluating this patient was 40 minutes. Dictated by Blanca Mishra/ts TD: 09/05/2016 06:34 JOB #: [id number] CC: Anirudh Ding M.D. HISTORY AND PHYSICAL Page 1 of 1 X Stephanie Nicole MD HISTORY AND PHYSICAL
--- NOTE | ~2016-09-05 | CT71 ---
[facility] A Service of [facility] RADIOLOGY TEXT RESULTS PATIENT: JENIFER DEGROOT LOCATION: [facility] : [birth year] UNIT #: [id number] AGE: [address]: Prem Barron MD SEX: F ORDER DR: [id number] [facility] [address] [place], [place] [address] [id number] MR#: [id number] #: [id number] NAME: JENIFER DEGROOT : 1970 SEX: F STUDY DATE/TIME: 09/05/2016 3:55 UNIT: CIC3 ROOM: [facility] STUDY DESCRIPTION: CT Head Wo Contrast Attending Physician: Prem Barron M.D. Ordering Physician: [place], [id number] Primary Care Physician: Primary Care Physician No MEDICAL IMAGING REPORT This report is preliminary unless electronic signature is present EXAM CT scan of the head without contrast, 09/05/2016 INDICATION Patient found unresponsive at home today and was resuscitated. Decreased level of consciousness. COMPARISON 07/15/2012 TECHNIQUE Unenhanced images were obtained through the brain. There is diffuse brain swelling with loss of the mccoy-white interface. There are still some sulci visible but they are clearly decreased in conspicuity as compared with the old study. The lateral ventricles are small. This CT exam was performed with one or more of the following radiation dose reduction techniques: automatic exposure control, adjustment of mA and/or kV according to patient size, and iterative reconstruction. IMPRESSION Findings are concerning for whole brain ischemia with loss of mccoy-white interface and swelling of the brain and effacement of sulci as well as compression of the fourth ventricle and lateral ventricles. Dictated by... Gary Rust M.D. THIS IS AN ELECTRONICALLY VERIFIED REPORT Gary Rust M.D. at 09/05/2016 1:39 PM TAISHA/pily [facility] A Service of [facility] RADIOLOGY TEXT RESULTS PATIENT: JENIFER DEGROOT LOCATION: [facility]3-18 : [birth year] UNIT #: [id number] AGE: [address]: Prem Barron MD SEX: F ORDER DR: TD: 09/05/2016 04:30 JOB #: [id number] MEDICAL IMAGING REPORT Page 1 of 1 COPY
--- NOTE | ~2016-09-05 | EKG ---
PATIENT: JENIFER DEGROOT UNIT #: [id number] Ventricular Rate: 109 BPM Atrial Rate: 109 BPM P-R Interval: 170 ms QRS Duration: 104 ms Q-T Interval: 370 ms QTC Calculation(Bezet): 498 ms P [place]: 79 degrees Calculated R [place]: -45 degrees Calculated T [place]: 128 degrees Diagnosis Line: Sinus tachycardia Diagnosis Line: Left axis deviation Diagnosis Line: Incomplete right bundle branch block Diagnosis Line: ST and T wave abnormality, consider lateral ischemia Diagnosis Line: Abnormal ECG Diagnosis Line: When compared with ECG of 15-FEB-2015 02:38, Diagnosis Line: Incomplete right bundle branch block is now Diagnosis Line: Present Diagnosis Line: ST depression, consider subendocardial injury or Diagnosis Line: digitalis effect now present in inferolateral Diagnosis Line: leads Diagnosis Line: Confirmed by WATSON FERRERA MD ([id number]) on 09/05/2016 Diagnosis Line: 7:43:37 AM INTERPRETING MD: IBAN BARROS
[~2016-09-05 02:25] MED LIST: ALDACTONE25 MG PO; COREG3.125 MG PO; ENTRESTO 24 MG1 EACH PO; LASIX20 MG PO; LORTAB 5/500 TA1 TA1 PO; MOBIC PO; NAPROXEN PO; PREDNISONE PO; ROBAXIN 750750 M1 PO; VITAMIN D 22000 UNIT PO; ZITHROMAX PO
[2016-09-05] MEDS ORDERED: LISINOPRIL10 MG PO (02:41)
[2016-09-05] MEDS ORDERED: TOPIRAMATE200 M1 PO (02:41)
[2016-09-05] MEDS ORDERED: COREG6.25 M1 PO ×2 (02:41→07:09)
[2016-09-05 03:16] LABS: ARTERIAL BLD GAS O2 SATURATION 99.6 % (90.0-100.0); ARTERIAL BLOOD GAS HCO3 12.6 mmol/L; ARTERIAL BLOOD GAS PCO2 44.8 mmHg (35.0-45.0); ARTERIAL BLOOD GAS pH 7.059 (7.350-7.450)
[2016-09-05 03:17] LABS: ARTERIAL BLOOD GAS ALLEN TEST NORMAL; ARTERIAL BLOOD GAS ART SITE LEFT RADIAL; ARTERIAL BLOOD GAS CARBOXY HB 0.1 %sat (0.0-9.0); ARTERIAL BLOOD GAS DELIVERY VENT; ARTERIAL BLOOD GAS MET HB 0.9 %sat (0.0-2.0); ARTERIAL BLOOD GAS VENT MODE A/C; ARTERIAL DRAW? YES
[2016-09-05 04:01] LABS: POC - CKMB 7.6 ng/mL (0.0-7.9); POC - TROPONIN <0.05 ng/mL (<=0.05)
[2016-09-05 04:01] LABS: URINE SOURCE CATH
[2016-09-05 04:25] LABS: POC - CREATININE 1.36 mg/dL (0.44-1.03)
[2016-09-05 04:29] LABS: BUN/CREATININE RATIO 13.57; CALCIUM SERUM 8.2 mg/dL (8.4-10.2); CREATININE SERUM 1.4 mg/dL (0.6-1.4); GLOM FILT RATE Estimated 51.7 mL/min (>60); POTASSIUM 3.9 mmol/L (3.5-5.1)
[2016-09-05 04:33] LABS: BASOPHIL# 0.1 X10e3 (0-0.3); BASOPHIL% 0.4 % (0-2.5); EOSINOPHIL# 0.1 X10e3 (0-0.7); EOSINOPHIL% 0.6 % (0.0-7.0); HEMATOCRIT 36.3 % (35.0-45.0); HEMOGLOBIN 11.2 gm/dL (12.0-16.0); LYMPHOCYTE# 3.9 X10e3 (1.0-3.5); LYMPHOCYTE% 22.8 % (17.0-45.0); MEAN CELL VOLUME 91.7 FL (83-96); MEAN CORPUSCULAR HEMOGLOBIN 28.2 PG (28-34); MEAN CORPUSCULAR HGB CONC 30.8 g/dL (30-36); MEAN PLATELET VOLUME 9.4 FL (6.5-11.5); MONOCYTE# 0.3 X10e3 (0-1.0); MONOCYTE% 1.5 % (3.0-12.0); NEUTROPHIL# 12.7 X10e3 (1.5-7.1); NEUTROPHIL% 74.7 % (40-75); PLATELET COUNT 232 X10e3 (140-420); RED BLOOD COUNT 3.96 X10e (3.90-5.30); RED CELL DISTRIBUTION WIDTH 13.6 % (11.0-15.5)
[2016-09-05 04:34] LABS: DIFF IND YES
[2016-09-05 04:43] LABS: URINE APPEARANCE CLOUDY; URINE BILIRUBIN NEG (NEG); URINE BLOOD 3+ (NEG); URINE COLOR YELLOW; URINE GLUCOSE NEG (NEG); URINE KETONE NEG (NEG); URINE LEUKOCYTE ESTERASE 1+ (NEG); URINE NITRATE NEG (NEG); URINE PH 6.5 (5-8); URINE PROTEIN 2+ (NEG); URINE SPECIFIC GRAVITY 1.022 (1.003-1.035)
[2016-09-05 04:46] LABS: CULTURE INDICATED? YES; URBCS1 AUWI 25-50 /[HPF] (0-2); URINE BACTERIA AUWI 1+ (NEGATIVE); URINE SQUAMOUS EPITHELIAL CELL MOD /[HPF]
[2016-09-05 05:05] LABS: URINE MUCUS PRESENT
[2016-09-05 05:29] LABS: ANISOCYTOSIS SL; OVALOCYTES PRESENT; PLATELET ESTIMATE NORMAL (NORMAL)
[2016-09-05 05:55] LABS: AMPHETAMINE NEG (NEG); BARBITURATES NEG (NEG); BENZODIAZEPINES NEG (NEG); COCAINE NEG (NEG); MARIJUANA NEG (NEG); OPIATES NEG (NEG); TRICYCLIC ANTIDEPRESSANTS NEG (NEG); U METHADONE NEG (NEG)
[2016-09-05 06:21] LABS: ARTERIAL BLOOD GAS PCO2 34.6 mmHg (35.0-45.0); ARTERIAL BLOOD GAS pH 7.223 (7.350-7.450)
[2016-09-05 06:22] LABS: ARTERIAL BLD GAS O2 SATURATION 93.6 % (90.0-100.0); ARTERIAL BLOOD GAS ALLEN TEST N; ARTERIAL BLOOD GAS ART SITE RIGHT RADIAL; ARTERIAL BLOOD GAS CARBOXY HB 0.5 %sat (0.0-9.0); ARTERIAL BLOOD GAS DELIVERY VENT; ARTERIAL BLOOD GAS HCO3 14.3 mmol/L; ARTERIAL BLOOD GAS VENT MODE AC; ARTERIAL DRAW? YES
[2016-09-05] MEDS ORDERED: LASIX20 MG PO (07:09)
[2016-09-05] MEDS ORDERED: PROAIR HFA8.5 GM INH (07:09)
[2016-09-05] MEDS ORDERED: K-DUR20 ME2 PO (07:10)
[2016-09-05] MEDS ORDERED: ALDACTONE25 MG PO (07:11)
[2016-09-05] MEDS ORDERED: ZESTRIL10 MG PO (07:12)
[2016-09-05] MEDS ORDERED: TOPAMAX25 MG PO (07:13)
[2016-09-05 07:22] LABS: ALBUMIN SERUM 2.8 g/dL (3.5-5.0); BILIRUBIN,TOTAL 0.1 mg/dL (0.2-2.0); BUN/CREATININE RATIO 15.33; CALCIUM SERUM 7.8 mg/dL (8.4-10.2); CREATININE SERUM 1.5 mg/dL (0.6-1.4); GLOM FILT RATE Estimated 47.6 mL/min (>60); POTASSIUM 4.4 mmol/L (3.5-5.1); PROTEIN TOTAL SERUM 5.9 g/dL (6.0-8.3)
[2016-09-05 07:29] LABS: INR 1.1; PROTHROMBIN TIME (PATIENT) 11.9 SECONDS (9.6-11.5)
[2016-09-05 13:49] LABS: MB 25.4 ng/ml
[2016-09-05 16:24] LABS: %MB 5.2 % (0.0-4.0); MB 21.1 ng/ml
[2016-09-05 18:13] LABS: CREATININE,RANDOM URINE 11 mg/dL; SODIUM URINE RANDOM 125 mmol/L; TOTAL PROTEIN,RANDOM URINE 53 mg/dl (<10)
[2016-09-06 04:15] LABS: ARTERIAL BLOOD GAS PCO2 24.9 mmHg (35.0-45.0); ARTERIAL BLOOD GAS pH 7.353 (7.350-7.450)
[2016-09-06 04:16] LABS: ARTERIAL BLD GAS O2 SATURATION 100.1 % (90.0-100.0); ARTERIAL BLOOD GAS CARBOXY HB 0.2 %sat (0.0-9.0); ARTERIAL BLOOD GAS HCO3 13.8 mmol/L; ARTERIAL BLOOD GAS MET HB 1.1 %sat (0.0-2.0)
[2016-09-06 04:17] LABS: ARTERIAL BLOOD GAS ALLEN TEST NORMAL; ARTERIAL BLOOD GAS ART SITE RIGHT RADIAL; ARTERIAL BLOOD GAS DELIVERY VENT; ARTERIAL BLOOD GAS VENT MODE AC; ARTERIAL DRAW? YES
[2016-09-06 05:43] LABS: BASOPHIL% 0.1 % (0-2.5); HEMATOCRIT 36.7 % (35.0-45.0); HEMOGLOBIN 11.6 gm/dL (12.0-16.0); LYMPHOCYTE# 0.9 X10e3 (1.0-3.5); LYMPHOCYTE% 3.7 % (17.0-45.0); MEAN CORPUSCULAR HGB CONC 31.6 g/dL (30-36); MONOCYTE# 0.8 X10e3 (0-1.0); MONOCYTE% 3.1 % (3.0-12.0); NEUTROPHIL# 23.2 X10e3 (1.5-7.1); NEUTROPHIL% 93.1 % (40-75); PLATELET COUNT 160 X10e3 (140-420); RED BLOOD COUNT 4.14 X10e (3.90-5.30); RED CELL DISTRIBUTION WIDTH 13.7 % (11.0-15.5)
[2016-09-06 05:59] LABS: MEAN CELL VOLUME 88.6 FL (83-96)
[2016-09-06 06:00] LABS: DIFF IND NO
[2016-09-06 06:48] LABS: ALBUMIN SERUM 2.7 g/dL (3.5-5.0); BILIRUBIN,TOTAL 0.6 mg/dL (0.2-2.0); BUN/CREATININE RATIO 13.05; CALCIUM SERUM 7.9 mg/dL (8.4-10.2); CREATININE SERUM 3.6 mg/dL (0.6-1.4); GLOM FILT RATE Estimated 16.5 mL/min (>60); MAGNESIUM 1.6 mg/dL (1.6-3.0); PHOSPHOROUS 3.7 mg/dL (2.5-4.6); POTASSIUM 3.5 mmol/L (3.5-5.1); PROTEIN TOTAL SERUM 5.6 g/dL (6.0-8.3)
== END 2016-09-07 | disposition expired | DRG 871 ==
LOC: CED 02:25 → CEDOF 05:50 → CICCU3 05:50 → CEDOF 05:54 → CICCU3 05:54 → CED 05:54 → CEDOF 07:36 → CICCU3 08:26
PROVIDERS: Emergency Medicine; Internal Medicine; Internal Medicine Nephrology
PROC: 0BH17EZ Insertion of Endotracheal Airway into Trachea, Via Natural or Artificial Opening (ICD-10-PCS; principal; 2016-09-05)
PROC: 5A1945Z Respiratory Ventilation, 24-96 Consecutive Hours (ICD-10-PCS; 2016-09-05)
PROC: 05HM33Z Insertion of Infusion Device into Right Internal Jugular Vein, Percutaneous Approach (ICD-10-PCS; 2016-09-05)
PROC: B543ZZA Ultrasonography of Right Jugular Veins, Guidance (ICD-10-PCS; 2016-09-05)
PROC: B24BYZZ Ultrasonography of Heart with Aorta using Other Contrast (ICD-10-PCS; 2016-09-05)
DX: A41.9 Sepsis, unspecified organism (principal); R65.21 Severe sepsis with septic shock; J96.00 Acute respiratory failure, unspecified whether with hypoxia or hypercapnia; N17.0 Acute kidney failure with tubular necrosis; G93.1 Anoxic brain damage, not elsewhere classified; E87.2 Acidosis; J69.0 Pneumonitis due to inhalation of food and vomit; I42.8 Other cardiomyopathies; I50.22 Chronic systolic (congestive) heart failure; M19.90 Unspecified osteoarthritis, unspecified site; M06.9 Rheumatoid arthritis, unspecified; J45.909 Unspecified asthma, uncomplicated; Z90.710 Acquired absence of both cervix and uterus; I08.1 Rheumatic disorders of both mitral and tricuspid valves; Z88.0 Allergy status to penicillin; I49.9 Cardiac arrhythmia, unspecified; R31.9 Hematuria, unspecified; E66.9 Obesity, unspecified; Z68.36 Body mass index [BMI] 36.0-36.9, adult
CPT/HCPCS: 36556; 36600; 51702; 70450; 71010; 71275; 74000; 76770; 78606; 80048; 80053; 80307; 81003; 82308; 82550; 82553; 82565; 82570; 82803; 82947; 83605; 83690; 83735; 83880; 84100; 84156; 84300; 84484; 85025; 85379; 85610; 85730; 87040; 87070; 87086; 87205; 89190; 92950; 93005; 93306; 94002; 94003; 94760; 96365; 96366; 96368; 96375; 96376; 99291; 99292; A9539; A9548; J0171; J1940; J1956; J2060; J2370; J3010; J3475; J7060; Q9967